=== PATIENT | male | born 1975 | race Caucasian/White ===

== ENCOUNTER 2021-08-26 18:09 | Inpatient (IN) | payer OTHER, BC ==
[~2021-08-26 18:09] MED LIST: Iopamidol-370 76% 500 ML 1 ML ONE
[2021-08-26] MEDS ORDERED: manNITOL 20% 0 ML ONE (18:13)
[2021-08-26] MEDS ORDERED: manNITOL 20% 500 ML ONE (18:16)
[2021-08-26] MEDS ORDERED: Mannitol 12.5 GM/50 ML ONE (18:16)
[2021-08-26] MEDS ORDERED: Boostrix 0.5 ML (Tdap) VIAL ONE (18:23)
[2021-08-26] MEDS ORDERED: CEFAZOLIN 1 GM VIAL ONE (18:24)
[2021-08-26 18:25] LABS: #Basophils 0.1 thou/uL (0.0-0.2); #Eosinphils 0.1 thou/uL (0.0-0.7); #Lymphocytes 3.8 thou/uL (1.20-3.40); #Neutrophils 5.4 thou/uL (1.40-6.50); %Basophils 0.9 % (0.0-1.0); %Lymphocytes 36.7 % (21.0-51.0); %Monocytes 9.6 % (0.0-10.0); %Neutrophils 51.8 % (42.0-75.0); Hemoglobin 14.5 g/dL (14.0-18.0); Mean Corpuscular HGB CONC 33.1 g/dL (32.0-36.0); Mean Corpuscular Hemoglobin 32.1 pg (27.0-31.0); Mean Corpuscular Volume 96.9 fL (78.0-98.0); Mean Platelet Volume 7.7 fL (7.4-10.4); Platelet Count 178 thou/uL (130-400); RBC Distribution Width 11.6 % (11.5-14.5); Red Blood Cell (RBC) Count 4.52 mill/uL (4.70-6.10); White Blood Cell (WBC) Count 10.5 thou/uL (4.8-10.8)
[2021-08-26 18:37] LABS: INR-International Normal Ratio 1.1; Prothrombin Time 14.5 sec (12.0-14.7)
[2021-08-26] MEDS ORDERED: Propofol 1,000 MG/100 ML VIAL IV ONE ×2 (18:37→21:53)
[2021-08-26] MEDS ORDERED: Fentanyl 100 MCG/2 ML VIAL ONE ×2 (18:37→18:46)
[2021-08-26 18:38] LABS: PTT 28.4 sec (22.9-36.1)
[2021-08-26 18:39] LABS: ALT (SGPT) 31 U/L (8-55); AST (SGOT) 37 U/L (5-34); Albumin 4.1 g/dL (3.5-5.0); Alcohol 127 mg/dL (Less than 10); Alkaline Phosphatase 70 U/L (40-110); Anion Gap 16 mmol/L (10-20); BUN (Urea Nitrogen) 14 mg/dL (8.9-20.6); Bilirubin, Total 0.4 mg/dL (0.2-1.2); Calc. Creatinine Clearance 0 mL/min (70-130); Calcium 8.8 mg/dL (7.8-10.44); Carbon Dioxide 22 mmol/L (22-29); Chloride 101 mmol/L (98-107); Globulin 3.1 g/dL (2.4-3.5); Glucose 145 mg/dL (70-105); Potassium 3.4 mmol/L (3.5-5.1); Protein, Total 7.2 g/dL (6.0-8.3); Sodium 136 mmol/L (136-145)
[2021-08-26 18:50] LABS: Actual Bicarbonate (HCO3a) 23.8 mEq/L (22-28); Analyzer IN Cardio ER; Base Excess (BEa) -2.1 mEq/L (-2.0 to +3.0); CO2 Tension 45.1 mmHg (35.0-45.0); Carboxyhemoglobin (COHb) 0.3 gm% (0.0-3.0); Hemoglobin (Hb) 13.5 g/dL (14.0-18.0); O2 Tension (PaO2), arterial 271.1 mmHg (80.0-100.0); pH, Arterial 7.34 (7.35-7.45)
[2021-08-26 18:51] LABS: Puncture Site RRA
[2021-08-26 18:52] LABS: ALV-art Gradient 385.525 mmHg (0-20)
[2021-08-26 19:44] LABS: Bacteria/HPF None Seen HPF (None Seen); Bilirubin Negative (Negative); Blood, Urine 1+ (Negative); Clarity Clear (Clear); Glucose, Urine (Dipstick) Normal (Negative); Ketone, Urine Negative (Negative); Leukocyte Negative Leu/uL (Negative); Nitrite Negative (Negative); Protein, Urine (Dipstick) 30 mg/dL (Neg-Trace); RBC/HPF 0-3 HPF (0-3); Specific Gravity, Urine 1.037 (1.002-1.036); Squamous Epithelial 0-3 HPF (0-3); Urobilinogen Normal mg/dL (Less than 2); WBC/HPF 0-3 HPF (0-3)
[2021-08-26 19:54] LABS: Amphetamine Detected (NotDetected); Barbiturates Screen Not Detected (NotDetected); Benzodiazepine Screen Not Detected (NotDetected); Cocaine Metabolite Screen Not Detected (NotDetected); Methadone Not Detected (NotDetected); Methamphetamine Not Detected (NotDetected); Opiate Screen Not Detected (NotDetected); Oxycodone Screen Not Detected (NotDetected); Phencyclidine (PCP) Not Detected (NotDetected); THC/Cannabinoid Screen Not Detected (NotDetected); Tricyclic Screen Not Detected (NotDetected)
[2021-08-26 20:54] LABS: SARS-CoV-2 NAA Rapid Test Not Detected (NotDetected)
[2021-08-26 21:25] LABS: Lactic Acid 4.5 mmol/L (0.5-2.2)
[2021-08-26] MEDS ORDERED: hydrALAZINE 20 MG/ML VIAL SLOW IVP PRN (21:34)
[2021-08-26] MEDS ORDERED: Ondansetron ODT 4 MG TAB PO PRN (21:34)
[2021-08-26] MEDS ORDERED: Dextrose 50% Abboject 50 ML SYRINGE SLOW IVP PRN (21:34)
[2021-08-26] MEDS ORDERED: Dextrose 5% in Water 1,000 ML IV PRN (21:34)
[2021-08-26] MEDS ORDERED: Famotidine/PF 20 mg/2ml Vial SLOW IVP SCH (22:00)
[2021-08-26] MEDS ORDERED: levETIRAcetam in NS 1,000 MG in Premix Bag 1 BAG IVPB SCH (22:00)
[2021-08-26] MEDS ORDERED: Oxazepam 10 MG CAP PO SCH (22:00)
[2021-08-26] MEDS ORDERED: Morphine 2 MG/ML VIAL SLOW IVP PRN (22:15)
[2021-08-26] MEDS ORDERED: Morphine 4 MG/ML VIAL SLOW IVP PRN (22:15)
[2021-08-26] MEDS ORDERED: Propofol BOLUS 1,000 MG/100 ML VIAL IV PRN (22:15)
[2021-08-26] MEDS ORDERED: DISCONTINUE PREVIOUS NARCOTIC PAIN MEDICATIONS AND BENZODIAZEPINES FS SCH (22:15)
[2021-08-26] MEDS ORDERED: Fentanyl BOLUS 250 ML IVPB PRN (22:15)
[2021-08-26] MEDS ORDERED: Lorazepam 2 MG/ML VIAL SLOW IVP PRN (22:15)
[2021-08-26] MEDS ORDERED: Fentanyl CADD 100 ML IV SCH (22:15)
[2021-08-26] MEDS: Propofol 1,000 MG/100 ML VIAL IV PRN (22:26)
[2021-08-26] MEDS: Sodium Chloride 0.9% 1,000 ML IV SCH (23:03)
[2021-08-26] MEDS ORDERED: Lidocaine 1% (PF) 30 ML VIAL SC SCH (23:15)
[2021-08-27] MEDS ORDERED: Acetaminophen 650 MG/20.3 ML UDCUP PO SCH (01:15)
[2021-08-27 04:27] LABS: #Lymphocytes 0.6 thou/uL (1.20-3.40); #Monocytes 1.2 thou/uL (0.11-0.59); #Neutrophils 10.1 thou/uL (1.40-6.50); %Eosinophils 0.1 % (0.0-10.0); %Lymphocytes 4.6 % (21.0-51.0); %Neutrophils 85.2 % (42.0-75.0); Mean Corpuscular HGB CONC 33.4 g/dL (32.0-36.0); Mean Corpuscular Hemoglobin 31.7 pg (27.0-31.0); Mean Corpuscular Volume 94.9 fL (78.0-98.0); Mean Platelet Volume 7.9 fL (7.4-10.4); Platelet Count 141 thou/uL (130-400); RBC Distribution Width 11.6 % (11.5-14.5); Red Blood Cell (RBC) Count 4.09 mill/uL (4.70-6.10); White Blood Cell (WBC) Count 11.9 thou/uL (4.8-10.8)
[2021-08-27] MEDS: Propofol 1,000 MG/100 ML VIAL IV PRN (04:36)
[2021-08-27 04:45] LABS: Anion Gap 13 mmol/L (10-20); BUN (Urea Nitrogen) 10 mg/dL (8.9-20.6); Calc. Creatinine Clearance 181 mL/min (70-130); Calcium 8.8 mg/dL (7.8-10.44); Carbon Dioxide 26 mmol/L (22-29); Chloride 102 mmol/L (98-107); Glucose 184 mg/dL (70-105); Potassium 3.9 mmol/L (3.5-5.1); Sodium 137 mmol/L (136-145)
[2021-08-27] MEDS: Acetaminophen 650 MG/20.3 ML UDCUP PO SCH ×3 (05:32→18:11)
[2021-08-27] MEDS: Sodium Chloride 0.9% 1,000 ML IV SCH ×3 (05:33→21:08)
[2021-08-27] MEDS: Folic Acid 1 MG TAB PO SCH (07:23)
[2021-08-27] MEDS: Thiamine 100 MG TAB PO SCH (07:23)
[2021-08-27] MEDS: levETIRAcetam in NS 500 MG in Premix Bag 1 BAG IVPB SCH ×2 (07:24→21:36)
[2021-08-27 07:28] LABS: Actual Bicarbonate (HCO3a) 21.6 mEq/L (22-28); Analyzer IN Cardio ER; Base Excess (BEa) 0.7 mEq/L (-2.0 to +3.0); Carboxyhemoglobin (COHb) 0.3 gm% (0.0-3.0); Hemoglobin (Hb) 13.4 g/dL (14.0-18.0); O2 Tension (PaO2), arterial 126.3 mmHg (80.0-100.0); Potassium - ABG Lab 3.63 mmol/L (3.70-5.30)
[2021-08-27 07:30] LABS: Puncture Site RBA; pH, Arterial 7.55 (7.35-7.45)
[2021-08-27] MEDS ORDERED: Calcium Chloride 1 GM/10 ML Abboject SYRINGE IVP SCH (08:15)
[2021-08-27] MEDS ORDERED: Famotidine/PF 20 mg/2ml Vial SLOW IVP SCH (09:00)
[2021-08-27] MEDS ORDERED: Oxazepam 10 MG CAP PO SCH (09:00)
[2021-08-27 09:40] LABS: Actual Bicarbonate (HCO3a) 22.9 mEq/L (22-28); Base Excess (BEa) -3.2 mEq/L (-2.0 to +3.0); CO2 Tension 45.1 mmHg (35.0-45.0); Calcium, Ionized (arterial) 1.12 mmol/L (1.12-1.30); Carboxyhemoglobin (COHb) 0.1 gm% (0.0-3.0); Hemoglobin (Hb) 13.3 g/dL (14.0-18.0); O2 Tension (PaO2), arterial 157.8 mmHg (80.0-100.0); Potassium - ABG Lab 3.68 mmol/L (3.70-5.30); pH, Arterial 7.32 (7.35-7.45)
[2021-08-27 09:42] LABS: Puncture Site RRA
[2021-08-27 09:47] LABS: ALV-art Gradient 142.325 mmHg (0-20)
[2021-08-27] MEDS: Scopolamine 1.5 mg/72 hour Patch TD SCH (09:51)
[2021-08-27] MEDS ORDERED: hydrALAZINE 20 MG/ML VIAL SLOW IVP PRN (10:41)
[2021-08-27] MEDS ORDERED: Sodium Chloride 0.9% 500 ML IV SCH (13:15)
[2021-08-27] MEDS: Oxazepam 10 MG CAP PO SCH ×2 (14:30→19:50)
[2021-08-27] MEDS: Bacitracin 1 PK TOP SCH ×2 (15:51→21:36)
[2021-08-27] MEDS ORDERED: Sodium Chloride 0.9% 1,000 ML IV SCH (18:51)
[2021-08-27] MEDS: Ondansetron PF 4 MG/2 ML Vial IVP PRN (19:44)
[2021-08-27 20:45] LABS: Anion Gap 10 mmol/L (10-20); BUN (Urea Nitrogen) 13 mg/dL (8.9-20.6); Calc. Creatinine Clearance 205 mL/min (70-130); Calcium 8.5 mg/dL (7.8-10.44); Carbon Dioxide 25 mmol/L (22-29); Chloride 106 mmol/L (98-107); Glucose 172 mg/dL (70-105); Magnesium 1.6 mg/dL (1.6-2.6); Phosphorus 3.1 mg/dL (2.3-4.7); Potassium 4.1 mmol/L (3.5-5.1); Sodium 137 mmol/L (136-145)
[2021-08-27] MEDS ORDERED: Magnesium Sulfate 4 GM in Sodium Chloride 0.9% 250 ML 250 ML IVPB SCH (21:30)
[2021-08-28] MEDS: Acetaminophen 650 MG/20.3 ML UDCUP PO SCH ×5 (00:23→23:22)
[2021-08-28] MEDS: Oxazepam 10 MG CAP PO SCH ×3 (02:00→13:19)
[2021-08-28 04:36] LABS: #Lymphocytes 0.9 thou/uL (1.20-3.40); #Monocytes 1.5 thou/uL (0.11-0.59); #Neutrophils 11.5 thou/uL (1.40-6.50); %Eosinophils 0.1 % (0.0-10.0); %Lymphocytes 6.1 % (21.0-51.0); %Monocytes 10.7 % (0.0-10.0); %Neutrophils 83.1 % (42.0-75.0); Hemoglobin 10.6 g/dL (14.0-18.0); Mean Corpuscular HGB CONC 33.6 g/dL (32.0-36.0); Mean Corpuscular Hemoglobin 32.7 pg (27.0-31.0); Mean Corpuscular Volume 97.1 fL (78.0-98.0); Mean Platelet Volume 8.3 fL (7.4-10.4); Platelet Count 96 thou/uL (130-400); Platelet Morphology Comment Appears Decreased; RBC Distribution Width 11.6 % (11.5-14.5); Red Blood Cell (RBC) Count 3.25 mill/uL (4.70-6.10); White Blood Cell (WBC) Count 13.8 thou/uL (4.8-10.8)
[2021-08-28] MEDS: Morphine 4 MG/ML VIAL SLOW IVP PRN ×3 (04:43→18:42)
[2021-08-28] MEDS: Sodium Chloride 0.9% 1,000 ML IV SCH ×3 (04:43→22:02)
[2021-08-28 05:27] LABS: Anion Gap 10 mmol/L (10-20); BUN (Urea Nitrogen) 11 mg/dL (8.9-20.6); CK (CPK) 390 U/L (30-200); Calc. Creatinine Clearance 219 mL/min (70-130); Calcium 8.2 mg/dL (7.8-10.44); Carbon Dioxide 28 mmol/L (22-29); Chloride 105 mmol/L (98-107); Glucose 156 mg/dL (70-105); Magnesium 2.4 mg/dL (1.6-2.6); Phosphorus 2.1 mg/dL (2.3-4.7); Sodium 139 mmol/L (136-145)
[2021-08-28] MEDS ORDERED: levETIRAcetam 500 MG/100 ML PREMIX BAG ONE ×2 (08:57→21:54)
[2021-08-28] MEDS: levETIRAcetam in NS 500 MG in Premix Bag 1 BAG IVPB SCH ×2 (08:58→22:03)
[2021-08-28] MEDS ORDERED: Piperacillin/Tazobactam 3.375 GM in Sodium Chloride 0.9% 100 ML IVPB SCH (09:00)
[2021-08-28] MEDS: Pantoprazole 40 MG VIAL IVP SCH (09:10)
[2021-08-28] MEDS: Folic Acid 1 MG TAB PO SCH (09:10)
[2021-08-28] MEDS: Thiamine 100 MG TAB PO SCH (09:11)
[2021-08-28] MEDS: Bacitracin 1 PK TOP SCH ×3 (09:50→22:01)
[2021-08-28] MEDS: Piperacillin/Tazobactam 3.375 GM in Sodium Chloride 0.9% 100 ML IVPB SCH ×2 (13:06→22:01)
[2021-08-28] MEDS: Thiamine HCl 200 MG/2 ML VIAL SLOW IVP SCH (15:25)
[2021-08-28] MEDS: Ondansetron PF 4 MG/2 ML Vial IVP PRN (18:02)
[2021-08-29] MEDS: Piperacillin/Tazobactam 3.375 GM in Sodium Chloride 0.9% 100 ML IVPB SCH ×3 (04:23→20:19)
[2021-08-29 04:28] LABS: #Lymphocytes 1.1 thou/uL (1.20-3.40); #Monocytes 1.5 thou/uL (0.11-0.59); #Neutrophils 10.8 thou/uL (1.40-6.50); %Basophils 0.2 % (0.0-1.0); %Eosinophils 0.1 % (0.0-10.0); %Lymphocytes 7.9 % (21.0-51.0); %Monocytes 11.1 % (0.0-10.0); %Neutrophils 80.7 % (42.0-75.0); Hemoglobin 10.2 g/dL (14.0-18.0); Mean Corpuscular HGB CONC 33.9 g/dL (32.0-36.0); Mean Corpuscular Volume 97.2 fL (78.0-98.0); Mean Platelet Volume 8.5 fL (7.4-10.4); Platelet Count 100 thou/uL (130-400); RBC Distribution Width 11.5 % (11.5-14.5); Red Blood Cell (RBC) Count 3.08 mill/uL (4.70-6.10); White Blood Cell (WBC) Count 13.3 thou/uL (4.8-10.8)
[2021-08-29 04:41] LABS: Anion Gap 9 mmol/L (10-20); BUN (Urea Nitrogen) 12 mg/dL (8.9-20.6); Calc. Creatinine Clearance 224 mL/min (70-130); Calcium 8.5 mg/dL (7.8-10.44); Carbon Dioxide 31 mmol/L (22-29); Chloride 105 mmol/L (98-107); Glucose 126 mg/dL (70-105); Potassium 3.8 mmol/L (3.5-5.1); Sodium 141 mmol/L (136-145)
[2021-08-29] MEDS: Acetaminophen 650 MG/20.3 ML UDCUP PO SCH ×3 (05:47→17:24)
[2021-08-29 05:50] VITALS: BMI 34.4
[2021-08-29] MEDS: Morphine 4 MG/ML VIAL SLOW IVP PRN ×3 (06:09→21:50)
[2021-08-29] MEDS: Sodium Chloride 0.9% 1,000 ML IV SCH ×2 (06:12→14:53)
[2021-08-29] MEDS: Pantoprazole 40 MG VIAL IVP SCH (12:00)
[2021-08-29] MEDS: Bacitracin 1 PK TOP SCH ×3 (12:38→20:13)
[2021-08-29] MEDS: Folic Acid 1 MG TAB PO SCH (12:39)
[2021-08-29] MEDS: levETIRAcetam in NS 500 MG in Premix Bag 1 BAG IVPB SCH ×2 (12:40→20:13)
[2021-08-29] MEDS: Ondansetron PF 4 MG/2 ML Vial IVP PRN (14:02)
[2021-08-29] MEDS: Thiamine HCl 200 MG/2 ML VIAL SLOW IVP SCH (18:26)
[2021-08-30] MEDS: Acetaminophen 650 MG/20.3 ML UDCUP PO SCH ×5 (01:23→23:48)
[2021-08-30] MEDS: Morphine 4 MG/ML VIAL SLOW IVP PRN ×2 (01:52→05:59)
[2021-08-30 03:57] LABS: #Lymphocytes 1.4 thou/uL (1.20-3.40); #Monocytes 1.5 thou/uL (0.11-0.59); #Neutrophils 9.6 thou/uL (1.40-6.50); %Basophils 0.4 % (0.0-1.0); %Eosinophils 0.2 % (0.0-10.0); %Lymphocytes 10.9 % (21.0-51.0); %Monocytes 12.2 % (0.0-10.0); %Neutrophils 76.3 % (42.0-75.0); Hemoglobin 10.3 g/dL (14.0-18.0); Mean Corpuscular HGB CONC 33.7 g/dL (32.0-36.0); Mean Corpuscular Hemoglobin 32.7 pg (27.0-31.0); Mean Corpuscular Volume 96.9 fL (78.0-98.0); Mean Platelet Volume 7.9 fL (7.4-10.4); Platelet Count 120 thou/uL (130-400); RBC Distribution Width 11.4 % (11.5-14.5); Red Blood Cell (RBC) Count 3.17 mill/uL (4.70-6.10); White Blood Cell (WBC) Count 12.6 thou/uL (4.8-10.8)
[2021-08-30 04:21] LABS: Anion Gap 12 mmol/L (10-20); BUN (Urea Nitrogen) 12 mg/dL (8.9-20.6); Calc. Creatinine Clearance 220 mL/min (70-130); Calcium 8.4 mg/dL (7.8-10.44); Carbon Dioxide 30 mmol/L (22-29); Chloride 101 mmol/L (98-107); Glucose 114 mg/dL (70-105); Potassium 3.8 mmol/L (3.5-5.1); Sodium 139 mmol/L (136-145)
[2021-08-30] MEDS: Piperacillin/Tazobactam 3.375 GM in Sodium Chloride 0.9% 100 ML IVPB SCH ×3 (04:32→20:06)
[2021-08-30] MEDS: Sodium Chloride 0.9% 1,000 ML IV SCH (06:01)
[2021-08-30] MEDS: Folic Acid 1 MG TAB PO SCH (07:34)
[2021-08-30] MEDS ORDERED: FLU VACC QS2021-22(6MOS UP)/PF 60 MCG/0.5 ML SYRINGE IM ONE (09:00)
[2021-08-30] MEDS: levETIRAcetam in NS 500 MG in Premix Bag 1 BAG IVPB SCH (09:11)
[2021-08-30] MEDS: Pantoprazole 40 MG VIAL IVP SCH (09:12)
[2021-08-30] MEDS: Bacitracin 1 PK TOP SCH ×3 (09:12→20:05)
[2021-08-30] MEDS: Scopolamine 1.5 mg/72 hour Patch TD SCH (09:12)
[2021-08-30] MEDS ORDERED: Acetaminophen W/ Codeine 5 ML UDCUP PO PRN (13:40)
[2021-08-30] MEDS: Thiamine HCl 200 MG/2 ML VIAL SLOW IVP SCH (17:31)
[2021-08-30] MEDS: levETIRAcetam 500 MG TAB PO SCH (20:06)
[2021-08-31] MEDS: Piperacillin/Tazobactam 3.375 GM in Sodium Chloride 0.9% 100 ML IVPB SCH ×2 (04:58→15:30)
[2021-08-31] MEDS: Acetaminophen 650 MG/20.3 ML UDCUP PO SCH ×2 (05:49→12:21)
[2021-08-31] MEDS: Folic Acid 1 MG TAB PO SCH (09:08)
[2021-08-31] MEDS: levETIRAcetam 500 MG TAB PO SCH (09:08)
[2021-08-31] MEDS: Bacitracin 1 PK TOP SCH ×2 (09:08→15:30)
[2021-08-31] MEDS: Thiamine HCl 200 MG/2 ML VIAL SLOW IVP SCH (15:30)
[2021-08-31 15:46] VITALS: BP 147/81; TEMP 99.2
== END 2021-08-31 15:26 | DRG 963 ==
LOC: ERS 18:09 → CCU 18:51 → SURG A 08-29 14:29
PROVIDERS: ADMIT Surgery; ATTEND Surgery
PROC: 0HQ0XZZ Repair Scalp Skin, External Approach (ICD-10-PCS; principal; 2021-08-26)
PROC: 02HV33Z Insertion of Infusion Device into Superior Vena Cava, Percutaneous Approach (ICD-10-PCS; 2021-08-26)
PROC: B548ZZA Ultrasonography of Superior Vena Cava, Guidance (ICD-10-PCS; 2021-08-26)
PROC: 5A1935Z Respiratory Ventilation, Less than 24 Consecutive Hours (ICD-10-PCS; 2021-08-26)
DX: S06.5X9A Traumatic subdural hemorrhage with loss of consciousness of unspecified duration, initial encounter (principal); J96.00 Acute respiratory failure, unspecified whether with hypoxia or hypercapnia; S27.322A Contusion of lung, bilateral, initial encounter; J69.0 Pneumonitis due to inhalation of food and vomit; S82.145A Nondisplaced bicondylar fracture of left tibia, initial encounter for closed fracture; D62 Acute posthemorrhagic anemia; G81.94 Hemiplegia, unspecified affecting left nondominant side; E87.2 Acidosis; R40.2113 Coma scale, eyes open, never, at hospital admission; R40.2213 Coma scale, best verbal response, none, at hospital admission; S06.6X9A Traumatic subarachnoid hemorrhage with loss of consciousness of unspecified duration, initial encounter; S02.0XXB Fracture of vault of skull, initial encounter for open fracture; Z20.822 Contact with and (suspected) exposure to COVID-19; I10 Essential (primary) hypertension; S30.811A Abrasion of abdominal wall, initial encounter; S80.812A Abrasion, left lower leg, initial encounter; E83.39 Other disorders of phosphorus metabolism; T79.6XXA Traumatic ischemia of muscle, initial encounter; E87.5 Hyperkalemia; R40.2333 Coma scale, best motor response, abnormal flexion, at hospital admission; V23.4XXA Motorcycle driver injured in collision with car, pick-up truck or van in traffic accident, initial encounter
CPT/HCPCS: 36415; 36416; 36600; 70450; 70486; 70498; 71045; 71260; 72125; 72170; 74177; 80048; 80053; 80306; 80307; 81003; 81015; 82330; 82435; 82533; 82550; 82803; 82805; 83605; 83735; 84100; 84132; 84146; 84295; 85025; 85610; 85730; 86850; 86900; 86901; 87040; 90715; 94002; 94640; C9113; G0390; J0360; J0690; J1953; J2001; J2150; J2270; J2405; J2543; J2704; J3010; J3411; J3475; J3490; J7030; J7050; J7620; J7799; P9045; Q9967; S0028; U0002

== ENCOUNTER 2021-09-28 12:43 | Emergency (ER) | payer BC ==
[2021-09-28] MEDS ORDERED: Ketorolac Tromethamine 30 MG/ML VIAL ONE (14:31)
[2021-09-28] MEDS ORDERED: Diazepam 5 MG TAB ONE (15:19)
== END 2021-09-28 16:20 | disposition home or self-care (01) ==
LOC: ERS 12:43
DX: M62.830 Muscle spasm of back (principal); I10 Essential (primary) hypertension
CPT/HCPCS: 70450; 71045; 96372; J1885

== ENCOUNTER 2021-12-17 08:26 | Day surgery (SDC) | payer BC ==
[2021-12-14 10:58] VITALS: BMI 29.1
[2021-12-17] MEDS ORDERED: Midazolam HCl 2 mg/2 ml Vial ONE (09:54)
[2021-12-17] MEDS ORDERED: Fentanyl 100 MCG/2 ML VIAL ONE ×2 (09:54→10:33)
[2021-12-17] MEDS ORDERED: ceFAZolin 2 GM/Dextrose 50 ML IVPB ONE (10:06)
[2021-12-17] MEDS ORDERED: Fentanyl 100 MCG/2 ML VIAL IV PRN (10:36)
[2021-12-17] MEDS ORDERED: Zolpidem Tartrate 5 MG TAB PO PRN (10:45)
[2021-12-17] MEDS ORDERED: Ondansetron PF 4 MG/2 ML Vial IVP PRN (10:45)
[2021-12-17] MEDS ORDERED: Ropivacaine 0.2% 550 ML 550 ML NERVE BLCK SCH (10:45)
[2021-12-17] MEDS ORDERED: HYDROcodone/Acetaminophen 10/325 mg Tablet PO PRN ×2 (10:45)
[2021-12-17] MEDS ORDERED: Promethazine HCl 25 MG/ML VIAL IM PRN (10:45)
[2021-12-17] MEDS ORDERED: traMADol HCl 50 MG TAB PO PRN ×2 (10:45)
[2021-12-17] MEDS ORDERED: Ketorolac Tromethamine 30 MG/ML VIAL IVP SCH (12:00)
== END 2021-12-17 14:30 | disposition home or self-care (01) ==
LOC: SDC 08:26
PROVIDERS: ATTEND Orthopaedic Surgery
PROC: 0LQ20ZZ Repair Left Shoulder Tendon, Open Approach (ICD-10-PCS; principal; 2021-12-17)
PROC: 0LS40ZZ Reposition Left Upper Arm Tendon, Open Approach (ICD-10-PCS; principal; 2021-12-17)
PROC: 0MN20ZZ Release Left Shoulder Bursa and Ligament, Open Approach (ICD-10-PCS; principal; 2021-12-17)
PROC: 3E0T3BZ Introduction of Anesthetic Agent into Peripheral Nerves and Plexi, Percutaneous Approach (ICD-10-PCS; principal; 2021-12-17)
DX: S46.012A Strain of muscle(s) and tendon(s) of the rotator cuff of left shoulder, initial encounter (principal); M75.22 Bicipital tendinitis, left shoulder; E78.00 Pure hypercholesterolemia, unspecified; I10 Essential (primary) hypertension; F10.20 Alcohol dependence, uncomplicated; E07.9 Disorder of thyroid, unspecified; Z79.890 Hormone replacement therapy; Z79.899 Other long term (current) drug therapy; Z87.891 Personal history of nicotine dependence; V29.9XXA Motorcycle rider (driver) (passenger) injured in unspecified traffic accident, initial encounter
CPT/HCPCS: A4306; C1713; J0690; J2250; J2795; J3010

== ENCOUNTER 2022-02-11 20:04 | Inpatient (IN) | payer BC ==
[2022-02-11 20:35] LABS: Actual Bicarbonate (HCO3a) 26.4 mEq/L (22-28); Base Excess (BEa) 0.3 mEq/L (-2.0 to +3.0); Calcium, Ionized (arterial) 1.12 mmol/L (1.12-1.30); Carboxyhemoglobin (COHb) 0.2 gm% (0.0-3.0); Hemoglobin (Hb) 13.2 g/dL (14.0-18.0); O2 Tension (PaO2), arterial 83.8 mmHg (80.0-100.0); Potassium - ABG Lab 3.93 mmol/L (3.70-5.30); pH, Arterial 7.35 (7.35-7.45)
[2022-02-11 20:38] LABS: Puncture Site RBA
[2022-02-11] MEDS ORDERED: Ondansetron ODT 4 MG TAB PO PRN (20:52)
[2022-02-11] MEDS ORDERED: Acetaminophen 650 MG Suppository PR PRN (20:52)
[2022-02-11] MEDS ORDERED: Acetaminophen 325 MG TAB PO PRN (20:52)
[2022-02-11] MEDS ORDERED: fentaNYL Citrate-0.9 % NaCl/PF 100 ML IVPB SCH (21:00)
[2022-02-11] MEDS ORDERED: Fentanyl BOLUS 250 ML IVPB PRN (21:00)
[2022-02-11] MEDS ORDERED: Lorazepam 2 MG/ML VIAL SLOW IVP PRN (21:00)
[2022-02-11] MEDS ORDERED: Morphine 2 MG/ML VIAL SLOW IVP PRN (21:00)
[2022-02-11] MEDS ORDERED: DISCONTINUE PREVIOUS NARCOTIC PAIN MEDICATIONS AND BENZODIAZEPINES FS SCH (21:00)
[2022-02-11] MEDS ORDERED: fentaNYL Citrate/PF 2,000 MCG in Sodium Chloride 0.9% 60 ML IV SCH (21:00)
[2022-02-11] MEDS ORDERED: Propofol BOLUS 1,000 MG/100 ML VIAL IV PRN (21:00)
[2022-02-11] MEDS ORDERED: Ventilator Sedation Protocol 1 EACH FS SCH (21:00)
[2022-02-11] MEDS: Propofol 1,000 MG/100 ML VIAL IV PRN (21:30)
[2022-02-11] MEDS: Sodium Chloride 0.9% 1,000 ML IV SCH (21:31)
[2022-02-11 23:52] LABS: Amphetamine Detected (NotDetected); Barbiturates Screen Not Detected (NotDetected); Benzodiazepine Screen Not Detected (NotDetected); Cocaine Metabolite Screen Not Detected (NotDetected); Methadone Not Detected (NotDetected); Methamphetamine Not Detected (NotDetected); Opiate Screen Not Detected (NotDetected); Oxycodone Screen Not Detected (NotDetected); Phencyclidine (PCP) Not Detected (NotDetected); THC/Cannabinoid Screen Not Detected (NotDetected); Tricyclic Screen Not Detected (NotDetected)
[2022-02-12] MEDS: Propofol 1,000 MG/100 ML VIAL IV PRN ×3 (01:39→10:48)
[2022-02-12] MEDS: Sodium Chloride 0.9% 1,000 ML IV SCH (05:13)
[2022-02-12 06:41] LABS: Actual Bicarbonate (HCO3a) 23.8 mEq/L (22-28); CO2 Tension 35.9 mmHg (35.0-45.0); Calcium, Ionized (arterial) 1.14 mmol/L (1.12-1.30); Carboxyhemoglobin (COHb) 0.1 gm% (0.0-3.0); Hemoglobin (Hb) 12.5 g/dL (14.0-18.0); O2 Tension (PaO2), arterial 94.9 mmHg (80.0-100.0); Potassium - ABG Lab 3.98 mmol/L (3.70-5.30); pH, Arterial 7.44 (7.35-7.45)
[2022-02-12 07:27] LABS: #Lymphocytes 1.3 thou/uL (1.20-3.40); #Monocytes 0.9 thou/uL (0.11-0.59); #Neutrophils 8.5 thou/uL (1.40-6.50); %Basophils 0.1 % (0.0-1.0); %Eosinophils 0.2 % (0.0-10.0); %Lymphocytes 12.2 % (21.0-51.0); %Monocytes 7.9 % (0.0-10.0); %Neutrophils 79.6 % (42.0-75.0); Hemoglobin 12.2 g/dL (14.0-18.0); Mean Corpuscular HGB CONC 32.2 g/dL (32.0-36.0); Mean Corpuscular Hemoglobin 30.5 pg (27.0-31.0); Mean Platelet Volume 2.9 fL (7.4-10.4); Platelet Count 180 thou/uL (130-400); RBC Distribution Width 13.7 % (11.5-14.5); White Blood Cell (WBC) Count 10.7 thou/uL (4.8-10.8)
[2022-02-12 07:28] LABS: ALT (SGPT) 12 U/L (8-55); AST (SGOT) 18 U/L (5-34); Albumin 3.7 g/dL (3.5-5.0); Alkaline Phosphatase 61 U/L (40-110); Anion Gap 12 mmol/L (10-20); BUN (Urea Nitrogen) 15 mg/dL (8.9-20.6); Bilirubin, Total 0.7 mg/dL (0.2-1.2); Calc. Creatinine Clearance 192 mL/min (70-130); Calcium 8.7 mg/dL (7.8-10.44); Carbon Dioxide 24 mmol/L (22-29); Chloride 105 mmol/L (98-107); Globulin 2.9 g/dL (2.4-3.5); Glucose 125 mg/dL (70-105); Potassium 4.2 mmol/L (3.5-5.1); Protein, Total 6.6 g/dL (6.0-8.3); Sodium 137 mmol/L (136-145)
[2022-02-12 07:40] LABS: ALV-art Gradient 145.425 mmHg (0-20); Puncture Site RRA
[2022-02-12] MEDS: Enoxaparin Sodium 40 MG/0.4 ML SYRINGE SC SCH (09:13)
[2022-02-12] MEDS: Famotidine/PF 20 mg/2ml Vial SLOW IVP SCH ×2 (09:23→21:25)
[2022-02-12] MEDS: levETIRAcetam 500 MG/5 ML VIAL SLOW IVP SCH ×2 (09:23→21:23)
[2022-02-12] MEDS: Ondansetron PF 4 MG/2 ML Vial IVP PRN (14:39)
[2022-02-12] MEDS ORDERED: Atorvastatin Calcium 20 MG TAB PO SCH (21:00)
[2022-02-12] MEDS: Carvedilol 6.25 MG TAB PO SCH (21:25)
[2022-02-13] MEDS: Ondansetron PF 4 MG/2 ML Vial IVP PRN (05:30)
[2022-02-13 05:35] LABS: #Eosinphils 0.1 thou/uL (0.0-0.7); #Lymphocytes 1.9 thou/uL (1.20-3.40); #Monocytes 0.8 thou/uL (0.11-0.59); #Neutrophils 6.6 thou/uL (1.40-6.50); %Basophils 0.2 % (0.0-1.0); %Eosinophils 1.2 % (0.0-10.0); %Lymphocytes 19.8 % (21.0-51.0); %Monocytes 8.6 % (0.0-10.0); %Neutrophils 70.2 % (42.0-75.0); Hemoglobin 12.7 g/dL (14.0-18.0); Mean Corpuscular HGB CONC 32.8 g/dL (32.0-36.0); Mean Corpuscular Volume 94.6 fL (78.0-98.0); Mean Platelet Volume 7.6 fL (7.4-10.4); Platelet Count 175 thou/uL (130-400); RBC Distribution Width 12.9 % (11.5-14.5); Red Blood Cell (RBC) Count 4.09 mill/uL (4.70-6.10); White Blood Cell (WBC) Count 9.3 thou/uL (4.8-10.8)
[2022-02-13 05:56] LABS: ALT (SGPT) 13 U/L (8-55); AST (SGOT) 18 U/L (5-34); Albumin 3.9 g/dL (3.5-5.0); Alkaline Phosphatase 66 U/L (40-110); Anion Gap 13 mmol/L (10-20); BUN (Urea Nitrogen) 7 mg/dL (8.9-20.6); Bilirubin, Total 0.9 mg/dL (0.2-1.2); Calc. Creatinine Clearance 206 mL/min (70-130); Calcium 8.8 mg/dL (7.8-10.44); Carbon Dioxide 27 mmol/L (22-29); Chloride 101 mmol/L (98-107); Glucose 106 mg/dL (70-105); Potassium 3.8 mmol/L (3.5-5.1); Protein, Total 6.9 g/dL (6.0-8.3); Sodium 137 mmol/L (136-145)
[2022-02-13] MEDS ORDERED: Levothyroxine Sodium 75 MCG TAB PO SCH (06:00)
[2022-02-13 06:54] VITALS: BMI 27.4
[2022-02-13] MEDS ORDERED: Amlodipine 5 MG TAB PO SCH (09:00)
[2022-02-13] MEDS: Carvedilol 6.25 MG TAB PO SCH (09:01)
[2022-02-13] MEDS: Enoxaparin Sodium 40 MG/0.4 ML SYRINGE SC SCH (09:02)
[2022-02-13] MEDS: Famotidine/PF 20 mg/2ml Vial SLOW IVP SCH (09:04)
[2022-02-13] MEDS: levETIRAcetam 500 MG/5 ML VIAL SLOW IVP SCH (09:04)
[2022-02-13 12:13] VITALS: TEMP 99.5
[2022-02-13 23:03] VITALS: BP 158/94
[2022-02-14] MEDS ORDERED: Prevnar 13-Val Conj/PF 0.5 ML SYRINGE IM ONE (09:00)
== END 2022-02-13 16:22 | disposition home or self-care (01) | DRG 100 ==
LOC: CCU 20:04 → NEURO 02-12 20:23
PROVIDERS: ADMIT Family Medicine; ATTEND Family Medicine
PROC: 0BH17EZ Insertion of Endotracheal Airway into Trachea, Via Natural or Artificial Opening (ICD-10-PCS; principal; 2022-02-11)
PROC: 5A1935Z Respiratory Ventilation, Less than 24 Consecutive Hours (ICD-10-PCS; 2022-02-11)
DX: G40.401 Other generalized epilepsy and epileptic syndromes, not intractable, with status epilepticus (principal); J96.01 Acute respiratory failure with hypoxia; Z20.822 Contact with and (suspected) exposure to COVID-19; E03.9 Hypothyroidism, unspecified; J98.2 Interstitial emphysema; D64.9 Anemia, unspecified; F90.9 Attention-deficit hyperactivity disorder, unspecified type; G93.89 Other specified disorders of brain; I10 Essential (primary) hypertension; Z87.820 Personal history of traumatic brain injury; Z79.890 Hormone replacement therapy; Z79.899 Other long term (current) drug therapy; Z98.890 Other specified postprocedural states; Z78.1 Physical restraint status; Z72.89 Other problems related to lifestyle
CPT/HCPCS: 36415; 36416; 36600; 70551; 71045; 80053; 80306; 82805; 84443; 85025; 94002; 95700; 95712; 95819; 95957; J1650; J1953; J2060; J2405; J2704; J7050; S0028